=== PATIENT | female | born 1955 | race Caucasian/White ===

== ENCOUNTER 2018-08-03 08:30 | Inpatient (IN) | payer OTHER ==
[~2018-08-03] VITALS: Ht 160 cm; Wt 64.0 kg
[2018-08-03] MEDS ORDERED: LOVASTATIN40 MG PO (11:15)
[2018-08-03] MEDS ORDERED: PROTONIX20 MG PO (11:15)
[2018-08-03] MEDS ORDERED: LEVO-T50 MCG PO (11:15)
[2018-08-03] MEDS ORDERED: CALTRATE 600+D1 EACH PO (11:16)
[2018-08-10] MEDS ORDERED: INTESTINEX680 M1 PO (10:26)
[2018-08-10] MEDS ORDERED: OMEPRAZOLE20 MG PO (10:26)
[2018-08-10] MEDS ORDERED: PERCOCET 5-3251 EACH PO (10:26)
== END 2018-08-10 11:54 | disposition home or self-care (01) | DRG 331 ==
LOC: EDSTATUS 08:30 → ADM 08:30 → O/R 08-07 06:25 → SURH 08-07 06:25
PROVIDERS: ADMIT Surgery
PROC: 0DJD8ZZ Inspection of Lower Intestinal Tract, Via Natural or Artificial Opening Endoscopic (ICD-10-PCS; 2018-08-07)
PROC: 0DTN4ZZ Resection of Sigmoid Colon, Percutaneous Endoscopic Approach (ICD-10-PCS; principal; 2018-08-07 10:30)
DX: K57.32 Diverticulitis of large intestine without perforation or abscess without bleeding (principal); N73.6 Female pelvic peritoneal adhesions (postinfective); E03.8 Other specified hypothyroidism; E78.00 Pure hypercholesterolemia, unspecified

== ENCOUNTER 2018-08-20 22:30 | Emergency (ER) | payer OTHER ==
[~2018-08-20] VITALS: Ht 160 cm; Wt 63.5 kg
[~2018-08-20 22:30] MED LIST: CALTRATE 600+D1 EACH PO; INTESTINEX680 M1 PO; LEVO-T50 MCG PO; LOVASTATIN40 MG PO; OMEPRAZOLE20 MG PO; PERCOCET 5-3251 EACH PO; PROTONIX20 MG PO
[2018-08-21] MEDS ORDERED: ANUSOL-HC25 MG RECTAL (02:51)
== END 2018-08-21 02:56 | disposition home or self-care (01) ==
LOC: ER 22:30
DX: K62.89 Other specified diseases of anus and rectum (principal); K64.8 Other hemorrhoids

== ENCOUNTER 2019-09-09 12:36 | Day surgery (SDC) | payer OTHER ==
[~2019-09-09 12:36] MED LIST changes: +ANUSOL-HC25 MG RECTAL
== END 2019-09-09 17:30 | disposition home or self-care (01) ==
LOC: AMB-ENDOS 12:36
PROVIDERS: ATTEND Surgery
DX: K62.89 Other specified diseases of anus and rectum (principal); Z20.828 Contact with and (suspected) exposure to other viral communicable diseases